=== PATIENT | male | born 1965 | race Caucasian/White ===

== ENCOUNTER 2017-03-13 21:54 | Emergency (ER) | payer OTHER ==
[~2017-03-13] VITALS: Ht 167.6 cm; Wt 71.2 kg
[2017-03-13 21:58] VITALS: TEMP 36.7; Ht 167.6 cm; Wt 71.2 kg
[2017-03-13] MEDS ORDERED: IBUPROFEN 600 MG TAB PO STA (22:06)
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
[2017-03-13 22:51] VITALS: BP 128/72; PULSE 72; O2SAT 98
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
== END 2017-03-13 22:52 | disposition home or self-care (01) ==
LOC: C.EDB 21:56 → C.EDC 22:52
DX: S99.821A Other specified injuries of right foot, initial encounter (principal); V09.9XXA Pedestrian injured in unspecified transport accident, initial encounter